=== PATIENT | male | born 1950 | race Caucasian/White ===

== ENCOUNTER 2022-11-23 09:46 | Observation (INO) ==
[~2022-11-23 09:46] MED LIST: Buffered Lidocaine 1% SYRIN 1 ml INTRADERM ONE; Lactated Ringers 1000 ml BAG 1,000 ML IV SCH; ROPIVACAINE 5 MG/ML 30 ML BTL (0.5%) ONE; Tranexamic Acid 1,000 MG in NS 0.9% 50 ML IV ONE
[2022-11-23] MEDS ORDERED: ceFAZolin 2 GM in NS PREMIX 2 GM/100 ML BAG IVPB ONE (10:14)
[2022-11-23 10:52] LABS: Rapid COVID-19 Molecular Undetected (Undetected)
[2022-11-23] MEDS ORDERED: Dexamethasone IV 4 MG/ML VIAL 1 ml VIAL ONE (12:19)
[2022-11-23] MEDS ORDERED: Propofol 10 MG/ML 20 ML BTL ONE ×2 (12:19→14:24)
[2022-11-23] MEDS ORDERED: Ondansetron 4 mg VIAL 2 MG/ML 2 ml VIAL ONE (12:19)
[2022-11-23] MEDS ORDERED: Midazolam 2 mg/2 ml VIAL 1 mg/ml 2 ml VIAL (2 mg) ONE (12:29)
[2022-11-23] MEDS ORDERED: Lidocaine 2% PF 5 ML VIAL ONE (13:17)
[2022-11-23] MEDS ORDERED: Lactulose 30 ml UDC PO PRN (13:50)
[2022-11-23] MEDS ORDERED: Ondansetron ODT 4 mg TAB 4 MG TAB PO PRN (13:50)
[2022-11-23] MEDS ORDERED: Ondansetron 4 mg VIAL 2 MG/ML 2 ml VIAL IV PRN (13:50)
[2022-11-23] MEDS ORDERED: Morphine 2 MG/ML SYRINGE IV PRN (13:50)
[2022-11-23] MEDS ORDERED: Magnesium Hydroxide LIQ 30 ML UDC PO PRN (13:50)
[2022-11-23] MEDS ORDERED: Acetaminophen IV 1 GM/100ML 1,000 MG/100 ML BAG IV ONE (13:51)
[2022-11-23] MEDS ORDERED: ceFAZolin 1 GM ADVAN 1 GM in NS 0.9% 50 ML 50 ML IVPB SCH (14:00)
[2022-11-23] MEDS ORDERED: Glycopyrrolate IV 0.2 MG/ML 1 ML VIAL ONE (14:17)
[2022-11-23] MEDS ORDERED: Phenylephrine 40 mcg/mL 10mL (400mcg) SYRINGE ONE (15:14)
[2022-11-23] MEDS ORDERED: HYDROmorphone 1 MG/1 ML SYRINGE IV PRN (15:20)
[2022-11-23] MEDS ORDERED: Naloxone 0.4 mg VIAL 0.4 mg/ml 1 ml VIAL IV PRN (15:20)
[2022-11-23] MEDS: Lactated Ringers 1000 ml BAG 1,000 ML IV SCH (16:56)
[2022-11-23] MEDS: ceFAZolin 1 GM ADVAN 1 GM in NS 0.9% 50 ML 50 ML IVPB SCH (20:09)
[2022-11-23] MEDS: Magnesium Hydroxide LIQ 30 ML UDC PO SCH (20:13)
[2022-11-24] MEDS: Lactated Ringers 1000 ml BAG 1,000 ML IV SCH (03:08)
[2022-11-24] MEDS: ceFAZolin 1 GM ADVAN 1 GM in NS 0.9% 50 ML 50 ML IVPB SCH ×2 (05:43→13:12)
[2022-11-24] MEDS: Magnesium Hydroxide LIQ 30 ML UDC PO SCH ×2 (09:26→20:07)
[2022-11-24] MEDS: Vitamin THERAPEUTIC TAB PO SCH (09:26)
[2022-11-24 09:43] LABS: Hematocrit 36.7 % (38-53); Hemoglobin 12.7 g/dL (13.2-16.3); Mean Platelet Volume 9.7 fL (7.5-11.2); Platelet Count 176 10^3/uL (150-450)
[2022-11-24 09:59] LABS: Calcium 8.8 mg/dL (8.6-10.3); Creatinine, Serum 0.83 mg/dL (0.67-1.17); Potassium 3.7 mmol/L (3.5-5.0); eGFR CKD-EPI 91.8 (>60)
[2022-11-25 06:30] LABS: Hematocrit 35.1 % (38-53); Hemoglobin 12.1 g/dL (13.2-16.3); Mean Platelet Volume 9.7 fL (7.5-11.2); Platelet Count 172 10^3/uL (150-450)
[2022-11-25] MEDS: Magnesium Hydroxide LIQ 30 ML UDC PO SCH (08:13)
[2022-11-25] MEDS: Vitamin THERAPEUTIC TAB PO SCH (08:14)
[2022-11-25 10:07] VITALS: BP 111/74
== END 2022-11-25 13:00 | disposition swing bed (61) ==
LOC: OR 09:46 → SSU 09:46 → EDSTATUS 12:00 → UNDODISOB 11-25 12:58
PROVIDERS: ADMIT Orthopaedic Surgery Adult Reconstructive Orthopaedic Surgery; ATTEND Orthopaedic Surgery Adult Reconstructive Orthopaedic Surgery

== ENCOUNTER 2022-11-25 13:08 | Inpatient (IN) ==
[2022-11-25] MEDS ORDERED: Ondansetron 4 mg VIAL 2 MG/ML 2 ml VIAL IV PRN (13:18)
[2022-11-25] MEDS ORDERED: Ondansetron ODT 4 mg TAB 4 MG TAB PO PRN (13:18)
[2022-11-25] MEDS ORDERED: Magnesium Hydroxide LIQ 30 ML UDC PO PRN (13:18)
[2022-11-25] MEDS ORDERED: Morphine 2 MG/ML SYRINGE IV PRN (13:18)
[2022-11-25] MEDS ORDERED: Lactulose 30 ml UDC PO PRN (13:18)
[2022-11-25] MEDS ORDERED: Magnesium Hydroxide LIQ 30 ML UDC PO SCH (21:00)
[2022-11-26 06:56] LABS: Hematocrit 34.7 % (38-53); Hemoglobin 11.9 g/dL (13.2-16.3); Mean Platelet Volume 9.4 fL (7.5-11.2); Platelet Count 179 10^3/uL (150-450)
[2022-11-26 07:12] LABS: Calcium 8.7 mg/dL (8.6-10.3); Creatinine, Serum 0.74 mg/dL (0.67-1.17); Potassium 4.2 mmol/L (3.5-5.0); eGFR CKD-EPI 95.1 (>60)
[2022-11-26] MEDS: Vitamin THERAPEUTIC TAB PO SCH (08:53)
[2022-11-27 06:12] LABS: Hematocrit 35.1 % (38-53); Hemoglobin 12.1 g/dL (13.2-16.3); Mean Platelet Volume 8.8 fL (7.5-11.2); Platelet Count 216 10^3/uL (150-450)
[2022-11-27] MEDS: Vitamin THERAPEUTIC TAB PO SCH (08:26)
[2022-11-28 06:28] VITALS: BP 119/80
[2022-11-28 06:45] LABS: Hematocrit 33.7 % (38-53); Hemoglobin 11.7 g/dL (13.2-16.3); Mean Platelet Volume 8.4 fL (7.5-11.2); Platelet Count 243 10^3/uL (150-450)
[2022-11-28] MEDS: Vitamin THERAPEUTIC TAB PO SCH (09:47)
== END 2022-11-28 15:30 | disposition home health service (06) | DRG 561 ==
LOC: SSU 13:08
PROVIDERS: ADMIT Orthopaedic Surgery Adult Reconstructive Orthopaedic Surgery; ATTEND Orthopaedic Surgery Adult Reconstructive Orthopaedic Surgery

== ENCOUNTER 2023-10-10 05:32 | Inpatient (IN) ==
[~2023-10-10 05:32] MED LIST changes: -Buffered Lidocaine 1% SYRIN 1 ml INTRADERM ONE; -Lactated Ringers 1000 ml BAG 1,000 ML IV SCH; +Metoclopramide 5 MG/ML VIAL (10 mg) IV PRN; +NS 0.45% 1000 ml BAG 1,000 ML IV SCH; +Naloxone 0.4 mg VIAL 0.4 mg/ml 1 ml VIAL IV PRN; +Ondansetron 4 mg VIAL 2 MG/ML 2 ml VIAL IV PRN; -ROPIVACAINE 5 MG/ML 30 ML BTL (0.5%) ONE; -Tranexamic Acid 1,000 MG in NS 0.9% 50 ML IV ONE; +fentaNYL 100 mcg/2 ml 50 MCG/ML VIAL IV PRN
[2023-10-10] MEDS ORDERED: ceFAZolin 2 GM PREMIX 2 GM/50 ML BAG ONE (05:52)
[2023-10-10] MEDS ORDERED: Tranexamic Acid 1 GM/100ML BAG 2,000 MG/200 ML BAG IV ONE (05:52)
[2023-10-10 06:09] LABS: Rapid COVID-19 Molecular Undetected (Undetected)
[2023-10-10] MEDS ORDERED: Ondansetron 4 mg VIAL 2 MG/ML 2 ml VIAL ONE (06:18)
[2023-10-10] MEDS ORDERED: Dexamethasone IV 4 MG/ML VIAL 1 ml VIAL ONE (06:18)
[2023-10-10] MEDS ORDERED: Propofol 10 MG/ML 20 ML BTL ONE (06:18)
[2023-10-10] MEDS ORDERED: Sodium Chloride 0.9% 10 ML ONE (06:18)
[2023-10-10] MEDS ORDERED: Lidocaine 2% PF 5 ML VIAL ONE (06:19)
[2023-10-10] MEDS ORDERED: Phenylephrine IV 10 MG/ML 1 ml VIAL ONE (06:19)
[2023-10-10] MEDS ORDERED: fentaNYL 100 mcg/2 ml 50 MCG/ML VIAL ONE ×2 (06:26→08:07)
[2023-10-10] MEDS ORDERED: Midazolam 2 mg/2 ml VIAL 1 mg/ml 2 ml VIAL (2 mg) ONE ×2 (06:27→08:32)
[2023-10-10] MEDS ORDERED: Rocuronium 50 mg VIAL 10 mg/ml 5 ml VIAL (50 mg) ONE ×3 (06:28→09:19)
[2023-10-10] MEDS ORDERED: Vancomycin 1,000 MG VIAL ONE (07:10)
[2023-10-10] MEDS ORDERED: Dexmedetomidine 200 mcg/2 ml 2 ml VIAL (200 mcg) ONE (09:46)
[2023-10-10] MEDS ORDERED: Lactulose 30 ml UDC PO PRN (11:56)
[2023-10-10] MEDS ORDERED: Magnesium Hydroxide LIQ 30 ML UDC PO PRN (11:56)
[2023-10-10] MEDS ORDERED: Ondansetron 4 mg VIAL 2 MG/ML 2 ml VIAL IV PRN (11:56)
[2023-10-10] MEDS ORDERED: Morphine 2 MG/ML SYRINGE IV PRN (11:56)
[2023-10-10] MEDS ORDERED: Ondansetron ODT 4 mg TAB 4 MG TAB PO PRN (11:56)
[2023-10-10] MEDS: Lactated Ringers 1000 ml BAG 1,000 ML IV SCH ×2 (13:14→13:22)
[2023-10-10] MEDS: Acetaminophen IV 1 GM/100ML 1,000 MG/100 ML BAG IV ONE (13:22)
[2023-10-10] MEDS: Buffered Lidocaine 1% SYRIN 1 ml INTRADERM ONE (13:22)
[2023-10-10] MEDS ORDERED: Sevoflurane BOTTLE ONE (15:18)
[2023-10-10] MEDS: ceFAZolin 1 GM ADVAN 1 GM in NS 0.9% 50 ML 50 ML IVPB SCH (17:12)
[2023-10-10] MEDS: Benzocaine/Menthol LOZ MT PRN (21:14)
[2023-10-10] MEDS: Magnesium Hydroxide LIQ 30 ML UDC PO SCH (21:15)
[2023-10-11 06:34] LABS: Hematocrit 35.7 % (38-53); Hemoglobin 12.2 g/dL (13.2-16.3); Mean Platelet Volume 8.9 fL (7.5-11.2); Platelet Count 180 10^3/uL (150-450)
[2023-10-11 07:01] LABS: Calcium 8.2 mg/dL (8.6-10.3); Creatinine, Serum 0.74 mg/dL (0.67-1.17); Potassium 4.1 mmol/L (3.5-5.0); eGFR CKD-EPI 94.5 (>60)
[2023-10-11] MEDS: Vitamin THERAPEUTIC TAB PO SCH (09:35)
[2023-10-11 10:18] VITALS: BP 120/70
[2023-10-12] MEDS ORDERED: Calcium/Vitamin D TAB 250/125 TAB PO SCH (09:00)
== END 2023-10-11 14:11 | disposition home or self-care (01) | DRG 483 ==
LOC: AA 05:32 → INTOOBSV 05:32 → SSU 11:57
PROVIDERS: ADMIT Orthopaedic Surgery; ATTEND Orthopaedic Surgery